=== PATIENT | female | born 1985 | race Caucasian/White ===

== ENCOUNTER 2016-12-08 16:42 | Emergency (ER) | payer OTHER ==
[~2016-12-08] VITALS: Ht 175.3 cm; Wt 91.4 kg
[~2016-12-08 16:42] MED LIST: ALBUTEROL SULF8.5 GM IH; FLONASE16 G1 BOTH NARES; LEVAQUIN500 MG PO; NAPROSYN500 MG PO; PERCOCET 5/31 TABLET PO; PREDNISONE20 MG PO
[2016-12-08 16:52] VITALS: BP 142/87
[2016-12-08 17:18] LABS: EOSINOPHIL COUNT 0.1 K/uL (0-0.3); HEMATOCRIT 46.3 % (36.0-46.0); IMMATURE GRANULOCYTE (%) 0.3 % (0.0-0.7); INSTRUMENT ABS NEUTROPHIL CT 8.4 K/uL; LYMPHOCYTE COUNT 2.6 K/uL (1.0-2.8); MCH 29.7 PG (29.0-34.0); MCHC 33.9 G/DL (30.0-36.0); MCV 87.7 FL (83-99); MEAN PLAT.VOLUME 9.6 uM^3 (9.5-12.4); MONOCYTE (%) 6.1 % (3-12); MONOCYTE COUNT 0.7 K/uL (0-0.8); NEUTROPHIL (%) 70.7 % (45-76); NEUTROPHIL COUNT 8.4 K/uL (1.8-6.4); PLATELET COUNT 235 K/uL (156-360); RBC DIS.WIDTH-SD 38.4 % (39-53); RED BLOOD COUNT 5.28 M/uL (3.80-5.20); WHITE BLOOD COUNT 11.9 K/uL (4.1-10.2)
[2016-12-08 17:29] LABS: CHLORIDE 103 mEq/L (99-109); POTASSIUM 3.7 mEq/L (3.7-5.4); SODIUM 137 mEq/L (136-147)
[2016-12-08 17:31] LABS: GLUCOSE 103 mg/dL (70-99)
[2016-12-08 17:32] LABS: ANION GAP 11 MEQ/L (2-14)
[2016-12-08 17:33] LABS: TOTAL BILIRUBIN 0.5 mg/dL (0.0-1.0)
[2016-12-08 17:34] LABS: ALKALINE PHOSPHATASE 105 IU/L (3-129)
[2016-12-08 17:35] LABS: GFR ESTIMATE (CALCULATED) > 59 mL/min/
[2016-12-08 17:36] LABS: UREA NITROGEN (BUN) 9 mg/dL (9-23)
[2016-12-08 17:38] LABS: LIPASE 22 U/L (1.0-51.0)
[2016-12-08 17:44] LABS: QUANTITATIVE HCG < 4.0 MIU/ML
[2016-12-08 17:49] LABS: ADD MIUA? YES; BILIRUBIN NEGATIVE; BLOOD NEGATIVE; COLOR YELLOW ((YELLOW)); GLUCOSE (STRIP) NEGATIVE; KETONES NEGATIVE; LEUKOCYTES NEGATIVE; NITRITE NEGATIVE; PROTEIN (STRIP) 30; SPECIFIC GRAVITY 1.029 (1.000-1.030)
[2016-12-08 17:52] LABS: BACTERIA RARE /HPF; EPITHELIAL CELLS 1+ /HPF; MUCUS 1+ /LPF; RED BLOOD CELLS 0-5 /HPF (0-5); WHITE BLOOD CELLS 0-5 /HPF (0-5)
[2016-12-08] MEDS ORDERED: MOTRIN800 MG PO (20:58)
[2016-12-08] MEDS ORDERED: NORCO 10/3251 TABLET PO (20:58)
== END 2016-12-08 22:52 | disposition home or self-care (01) ==
LOC: EME 16:42
PROVIDERS: Physician Assistant
DX: N83.201 Unspecified ovarian cyst, right side (principal); J45.909 Unspecified asthma, uncomplicated; Z98.51 Tubal ligation status; F17.200 Nicotine dependence, unspecified, uncomplicated
CPT/HCPCS: 74022; 76856; 80053; 81003; 83690; 84702; 85025; 93975; 99281; 99283; J0500; J1885

== ENCOUNTER 2016-12-12 15:48 | Emergency (ER) | payer OTHER ==
[~2016-12-12] VITALS: Ht 175.3 cm; Wt 94.2 kg
[~2016-12-12 15:48] MED LIST changes: +MOTRIN800 MG PO; +NORCO 10/3251 TABLET PO
[2016-12-12 17:31] LABS: HEMATOCRIT 47.2 % (36.0-46.0); MCH 29.3 PG (29.0-34.0); MCHC 33.1 G/DL (30.0-36.0); MCV 88.7 FL (83-99); MEAN PLAT.VOLUME 9.6 uM^3 (9.5-12.4); PLATELET COUNT 208 K/uL (156-360); RBC DIS.WIDTH-SD 39.1 % (39-53); RED BLOOD COUNT 5.32 M/uL (3.80-5.20)
[2016-12-12 17:31] LABS: ADD MIUA? YES; BILIRUBIN NEGATIVE; BLOOD LARGE; COLOR YELLOW ((YELLOW)); GLUCOSE (STRIP) NEGATIVE; KETONES NEGATIVE; LEUKOCYTES NEGATIVE; NITRITE NEGATIVE; PROTEIN (STRIP) 30; SPECIFIC GRAVITY 1.006 (1.000-1.030); UROBILINOGEN 0.2 MG/DL (0.2-1.0)
[2016-12-12 17:35] LABS: BACTERIA RARE /HPF; EPITHELIAL CELLS RARE /HPF; MUCUS TRACE /LPF; RED BLOOD CELLS TNTC /HPF (0-5); UCUL ADDED? YES; WHITE BLOOD CELLS 0-5 /HPF (0-5)
[2016-12-12 17:40] LABS: CHLORIDE 106 mEq/L (99-109); POTASSIUM 3.8 mEq/L (3.7-5.4); SODIUM 139 mEq/L (136-147)
[2016-12-12 17:42] LABS: GLUCOSE 85 mg/dL (70-99)
[2016-12-12 17:43] LABS: ANION GAP 9 MEQ/L (2-14)
[2016-12-12 17:46] LABS: ALKALINE PHOSPHATASE 88 IU/L (3-129); GFR ESTIMATE (CALCULATED) > 59 mL/min/; TOTAL BILIRUBIN 0.3 mg/dL (0.0-1.0)
[2016-12-12 17:47] LABS: UREA NITROGEN (BUN) 6 mg/dL (9-23)
[2016-12-12 17:54] LABS: QUANTITATIVE HCG < 4.0 MIU/ML
[2016-12-12 21:10] VITALS: BP 125/79
== END 2016-12-12 21:11 | disposition home or self-care (01) ==
LOC: EME 15:48
PROVIDERS: Physician Assistant
DX: N83.201 Unspecified ovarian cyst, right side (principal); N92.0 Excessive and frequent menstruation with regular cycle; F17.200 Nicotine dependence, unspecified, uncomplicated; Z98.51 Tubal ligation status; Z88.0 Allergy status to penicillin
CPT/HCPCS: 76856; 80053; 81003; 84702; 85027; 86850; 86900; 86901; 87086; 99281; 99284; J1885; J3010

== ENCOUNTER 2016-12-16 07:59 | Day surgery (SDC) | payer OTHER ==
[~2016-12-16] VITALS: Ht 175.3 cm; Wt 91.0 kg
[2016-12-16 08:06] VITALS: BP 139/91
[2016-12-16 15:15] VITALS: BP 130/62
[2016-12-16 19:20] VITALS: BP 142/92
[2016-12-16 23:17] VITALS: BP 114/69
[2016-12-17 04:50] VITALS: BP 112/76
[2016-12-17 10:28] VITALS: BP 133/85
[2016-12-17] MEDS ORDERED: NORCO 10/3251 TABLET PO (11:35)
[2016-12-17] MEDS ORDERED: DOCUSATE SODIU100 MG PO (11:35)
[2016-12-17] MEDS ORDERED: MOTRIN600 MG PO (11:35)
== END 2016-12-17 12:49 | disposition home or self-care (01) ==
LOC: SDC 07:59 → 2EAST 08:00 → SDC 10:32 → 2EAST 12-17 12:49
DX: D27.0 Benign neoplasm of right ovary (principal); N80.3 Endometriosis of pelvic peritoneum; N93.9 Abnormal uterine and vaginal bleeding, unspecified; F17.200 Nicotine dependence, unspecified, uncomplicated; J45.909 Unspecified asthma, uncomplicated; F31.31 Bipolar disorder, current episode depressed, mild; Z98.51 Tubal ligation status; Z88.0 Allergy status to penicillin
CPT/HCPCS: 88108; 88160; 88304; 88305; G0378; J0330; J1100; J1170; J1580; J1885; J2270; J2405; J2710; J2765; J3010; J7050; J7120

== ENCOUNTER 2017-02-26 13:57 | Emergency (ER) | payer OTHER ==
[~2017-02-26] VITALS: Ht 175.3 cm; Wt 88.3 kg
[~2017-02-26 13:57] MED LIST changes: +DOCUSATE SODIU100 MG PO; +MOTRIN600 MG PO
[2017-02-26 16:10] LABS: HEMATOCRIT 43.8 % (36.0-46.0); MCH 29.6 PG (29.0-34.0); MCV 87.1 FL (83-99); MEAN PLAT.VOLUME 9.7 uM^3 (9.5-12.4); PLATELET COUNT 248 K/uL (156-360); RBC DIS.WIDTH-CV 11.7 % (11.8-14.6); RBC DIS.WIDTH-SD 37.2 % (39-53); RED BLOOD COUNT 5.03 M/uL (3.80-5.20); WHITE BLOOD COUNT 10.2 K/uL (4.1-10.2)
[2017-02-26 16:34] LABS: QUANTITATIVE HCG < 4.0 MIU/ML
[2017-02-26 17:23] LABS: ADD MIUA? YES; BILIRUBIN NEGATIVE; BLOOD SMALL; COLOR STRAW ((YELLOW)); GLUCOSE (STRIP) NEGATIVE; KETONES NEGATIVE; LEUKOCYTES NEGATIVE; NITRITE NEGATIVE; PROTEIN (STRIP) NEGATIVE; SPECIFIC GRAVITY 1.003 (1.000-1.030); UROBILINOGEN 0.2 MG/DL (0.2-1.0)
[2017-02-26 17:28] LABS: BACTERIA RARE /HPF; EPITHELIAL CELLS RARE /HPF; MUCUS NONE SEEN /LPF; RED BLOOD CELLS 0-5 /HPF (0-5); UCUL ADDED? NO; WHITE BLOOD CELLS 0-5 /HPF (0-5)
[2017-02-26 17:38] LABS: CHLORIDE 105 mEq/L (99-109); POTASSIUM 3.6 mEq/L (3.7-5.4); SODIUM 138 mEq/L (136-147)
[2017-02-26 17:40] LABS: GLUCOSE 121 mg/dL (70-99)
[2017-02-26 17:41] LABS: ANION GAP 11 MEQ/L (2-14)
[2017-02-26 17:42] LABS: TOTAL BILIRUBIN 0.4 mg/dL (0.0-1.0)
[2017-02-26 17:43] LABS: ALKALINE PHOSPHATASE 96 IU/L (3-129)
[2017-02-26 17:44] LABS: GFR ESTIMATE (CALCULATED) > 59 mL/min/
[2017-02-26 17:45] LABS: UREA NITROGEN (BUN) 9 mg/dL (9-23)
[2017-02-26 17:47] LABS: LIPASE 30 U/L (1.0-51.0)
[2017-02-26] MEDS ORDERED: ZOFRAN ODT4 MG PO (21:15)
[2017-02-26] MEDS ORDERED: PERCOCET 5/31 TABLET PO (21:15)
[2017-02-26 21:34] VITALS: BP 133/112
== END 2017-02-26 21:35 | disposition home or self-care (01) ==
LOC: EME 13:57
DX: R10.2 Pelvic and perineal pain (principal); J45.909 Unspecified asthma, uncomplicated; I10 Essential (primary) hypertension; F41.9 Anxiety disorder, unspecified; F17.200 Nicotine dependence, unspecified, uncomplicated; Z88.0 Allergy status to penicillin
CPT/HCPCS: 76856; 80053; 81003; 83690; 84702; 85027; 99281; 99283; J3010